=== PATIENT | female | born 1990 ===

== ENCOUNTER → 2017-06-22 | Day surgery (SDC) | payer BC ==
[2017-06-21 13:09] VITALS: Ht 160 cm; Wt 61.4 kg
[~2017-06-22] VITALS: Ht 160 cm; Wt 61.4 kg
[~2017-06-22] MED LIST: ATROPINE SULFATE 0.1 MG/ML 5ML SYR IV PRN; CEFAZOLIN 1000MG IV PUSH 5 ML IV SCH; DEXAMETHASONE SOD INJ 4 MG/ML VIAL ONE; EpHEDrine SULFATE INJ 50 MG/ML AMP IV PRN; EpINEphrine INJ 1MG/ML AMP 1 MG/ML AMP ONE; FENTANYL CITRATE INJ 50 MCG/1 ML 2 ML VIAL IV PRN; FENTANYL CITRATE INJ 50 MCG/1 ML 2 ML VIAL ONE; KETO10TA PO; KETOROLAC TROMETHAMINE 30 MG/ML VIAL ONE; LIDOCAINE HCL 2% 2 ML VIAL (20MG/ML) ONE; MIDAZOLAM HCL 1 MG/ML 2ML VIAL ONE; MULT1CHW39 PO; ONDANSETRON INJ 2 MG/ML 2 ML VIAL IV PRN; ONDANSETRON INJ 2 MG/ML 2 ML VIAL ONE; OXYC-57 PO; OXYCODONE/ACETAMINOPHEN 5-325 TAB PO PRN; PATIENT'S ALLERGY INFO NEEDS ENTERED SCH; PATIENT'S HEIGHT AND/OR WEIGHT NEEDED SCH; PROPOFOL IV EMULSION 10 MG/ML 20 ML VIAL IV ONE; ROPIVACAINE 0.5% 5 MG/ML 30 ML VIAL ONE; SCOPOLAMINE 1.5 MG TDSY TD ONE; SODIUM CHLORIDE 0.9% 1000ML 1,000 ML IV SCH
[2017-06-22] MEDS: LACTATED RINGER'S 1000ML 1,000 ML IV SCH ×2 (12:28→15:11)
--- NOTE | 2017-06-22 13:16 | History & Physical Bridge - [place] ---
H&P Re-Evaluation Bridge Note: I have examined the patient, reviewed the History & Physical and in the interval since the performance of the History & Physical I have noted the following changes of clinical significance: No changes noted
--- NOTE | 2017-06-22 14:36 | [facility] Post Operative Brief Note ---
Immediate Operative Summary Operative Date Jun 22, 2017. Pre-Operative Diagnosis Right Knee Medial Meniscal Tear Post-Operative Diagnosis Same Procedure(s) Performed Right Knee Arthroscopy With Partial Medial Meniscectomy Surgeon Dr. Carlos Tin Pot Operator Surgeon(s) Hortensia Brown PA-C Estimated Blood Loss Minimal Findings Displaced Bucket-handle Medial Meniscus Tear Specimens None Anesthesia General Complication(s) None Disposition Recovery Room / PACU
--- NOTE | 2017-06-22 14:37 | Discharge Instructions-SurgCtr ---
Discharge Instructions Date of Service Jun 22, 2017. Visit Reason for Visit: Right Knee Acute Medial Meniscal Tear Discharge Discharge Diagnosis / Problem: right medial meniscus tear Discharge Goals Goal(s): Decrease discomfort, Improve function, Therapeutic intervention Activity Recommendations Activity Limitations: per Instructions/Follow-up section Weightbearing Status: Right weightbearing (as tolerated) Anesthesia . Post Anesthesia Instructions: If you have had General Anesthesia or IV Sedation: * Do not drive today. * Resume driving when surgeon permits. * Do not make important decisions or sign legal documents today. * Call surgeon for: 1. Temperature elevations greater than 101 degrees F. 2. Uncontrollable pain. 3. Excessive bleeding. 4. Persistent nausea and vomiting. 5. Medication intolerance (nausea, vomiting or rash). * For nausea and vomiting use only clear liquids such as: tea, soda, bouillon until nausea subsides, then gradually increase diet as tolerated. * If you have any concerns or questions, call your surgeon's office. If physician is unavailable and it is an emergency, call 911 or go to the nearest emergency room. . Instructions / Follow-Up Instructions / Follow-Up MEDICATIONS: * Resume previous medications unless instructed otherwise by your surgeon. * Always take pain medication on a full stomach or with food to avoid upset stomach. * Do not drink alcohol or drive while taking narcotics. * Ibuprofen or Tylenol may be taken if narcotic not needed. No ibuprofen while taking toradol SPECIAL CARE INSTRUCTIONS: __ None _x_ Keep extremity elevated and iced x 48 hours; apply ice 20-30 minutes 8-10 times/day. May remove at night. __ Crutches __ May discard when able __ Brace/Post-op shoe __ 24 hrs/day __ Remove at night _x_ Dressing __ Maintain until seen in office, may shower with plastic over site _x_ Remove dressings in 24-48 hours and then may shower _x_ Cover incisions with band-aids after showering __ Do not remove steri-strips Call physician if chills or temperature rises above 102 degrees or pain unrelieved by prescribed pain medications. Office [phone] follow up in 2 weeks Diet Recommendations Home Diet: resume previous diet Procedures Procedures Performed: Right Knee Arthroscopy With Partial Medial Meniscectomy Pending Studies Studies pending at discharge: no Medical Emergencies . Who to Call and When: Medical Emergencies: If at any time you feel your situation is an emergency, please call 911 immediately. . Non-Emergent Contact Non-Emergency issues call your: Surgeon . . "Provider Documentation" section prepared by Jhony Brown. .
[2017-06-22 15:15] VITALS: TEMP 36.7
[2017-06-22 15:45] VITALS: BP 110/72; PULSE 71; O2SAT 100
--- NOTE | 2017-06-22 15:48 | Anesthesia Progress Nt - [facility] ---
Anesthesia Post Op Note Date & Time Jun 22, 2017 at 15:48 Vital Signs Pain Intensity: 4 Vital Signs Past 12 Hours Date Time Temp Pulse Resp B/P (MAP) Pulse Ox O2 Delivery O2 Flow Rate FiO2 06/22/17 15:45 71 16 110/72 (85) 100 Room Air 06/22/17 15:15 36.7 56 16 116/74 (88) 100 Room Air 06/22/17 15:09 36.7 54 20 06/22/17 15:09 54 20 100 06/22/17 15:06 118/76 06/22/17 15:04 60 20 06/22/17 15:04 62 20 100 06/22/17 15:01 114/78 06/22/17 14:59 65 15 100 06/22/17 14:59 67 15 06/22/17 14:56 117/69 06/22/17 14:54 53 7 06/22/17 14:54 53 7 100 06/22/17 14:51 120/73 06/22/17 14:49 64 20 100 06/22/17 14:49 63 20 06/22/17 14:46 117/67 06/22/17 14:44 69 32 100 06/22/17 14:44 67 32 06/22/17 14:40 106/70 06/22/17 14:40 36.5 81 18 106/70 100 Mask 6 06/22/17 11:51 36.6 77 16 115/78 (90) 100 Room Air Notes Mental Status: alert / awake / arousable, participated in evaluation Pt Amnestic to Procedure: Yes Nausea / Vomiting: adequately controlled Pain: adequately controlled Airway Patency, RR, SpO2: stable & adequate BP & HR: stable & adequate Hydration State: stable & adequate Anesthetic Complications: no major complications apparent
--- NOTE | 2017-06-22 16:57 | OPERATIVE REPORT ---
DATE OF OPERATION: 06/22/2017 SURGEON: Paul Carlos MD LIVESTOCK COUNTER: KATIE Mckeon PREOPERATIVE DIAGNOSIS: Right displaced bucket handle medial meniscus tear. POSTOPERATIVE DIAGNOSIS: Same. PROCEDURES PERFORMED: 1. Right knee exam under anesthesia. 2. Right knee diagnostic arthroscopy. 3. Right knee arthroscopic partial medial meniscectomy. COMPLICATIONS: None. ESTIMATED BLOOD LOSS: Minimal. TOURNIQUET TIME: 18 minutes at 300 mmHg. ANESTHESIA: General. SPECIMENS: None. 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 She had an injury that just kind of quieted down after several weeks. Then, she got back to playing soccer and then 3 weeks ago, had a more severe injury. She has been unable to straighten her knee since then. She had an MRI, which revealed a displaced bucket handle tear of her medial meniscus. There was some concern of injury to her ACL based on the MRI, but on clinical exam, it appeared stable. The patient indicates for knee arthroscopy and partial meniscectomy. OPERATIVE FINDINGS: Examination under anesthesia of the right knee revealed a small effusion. Her range of motion was full extension and 135 degrees of flexion. She had a good endpoint to Keshia. No pivot. No varus or valgus instability. Micha's was negative for mechanical symptoms. ARTHROSCOPIC FINDINGS: Arthroscopic findings revealed a very small serosanguineous effusion. The undersurface of patella and trochlea were normal. In the intercondylar notch, the ACL appeared intact. The synovium was injected, but no obvious tear. The PCL was intact. In the medial compartment, there was displaced bucket handle medial meniscus tear. The articular surface was pretty well preserved. In the lateral compartment, the articular surface of the meniscus was normal. OPERATIVE PROCEDURE: The patient was taken to the operating room, identified and placed on the operating table in the supine position. All contact areas were appropriately padded. IV antibiotics were provided by the anesthesia team. A general anesthetic was implemented by the anesthesia team. The right thigh tourniquet was then placed. The right lower extremity was then examined under anesthesia with findings as described above. The right leg was then prepped and draped in the usual sterile fashion. The right leg was elevated and exsanguinated with an Esmarch and tourniquet was placed at 300 mmHg. Routine right knee arthroscopy was then performed through a typical anteromedial and anterolateral portals. Supralateral outflow portal was established for outflow. Some of the fat pads were resected in order to adequately visualize the knee. Attention was then drawn to the medial meniscus. The medial meniscus fragment was reduced. I then detached this posteriorly and then anteriorly and removed it from the joint. I then used a combination of hand control and motorized instrument to remove remaining torn pieces of the medial meniscus back to stable tissue. Once this wass complete, the arthroscopic instrument was placed throughout the knee joint. All extraneous debris was removed. The arthroscopic instruments were then removed from the knee and the portals were closed with 3-0 Prolene suture in a simple fashion. The knee was then injected with 30 mL of 0.5% from ropivacaine with epinephrine and 30 mg of Toradol. Sterile dressing composed of Xeroform, 4 x 4s, sterile cast and Tae bandage were applied. The patient's tourniquet was then let down for a tourniquet time of 18 minutes. The patient then brought out of general anesthesia and transferred to the recovery room in stable condition. The patient tolerated the procedure well with no complications. All needle and sponge counts were correct at the end of the operation. I attest to the content of the Intraoperative Record and any orders documented therein. Any exceptions are noted below. LEO
== END | disposition home or self-care (01) ==
LOC: X.SURG 11:18
PROVIDERS: ATTEND Orthopaedic Surgery Sports Medicine
DX: S83.211A Bucket-handle tear of medial meniscus, current injury, right knee, initial encounter (principal); Y93.66 Activity, soccer; Y92.322 Soccer field as the place of occurrence of the external cause